=== PATIENT | female | born 1985 | race Caucasian/White ===

== ENCOUNTER 2016-11-13 17:53 | Emergency (ER) | payer OTHER ==
[2016-11-13 18:05] VITALS: BP 150/60; PULSE 84; TEMP 98.4; BMI 24.1
--- NOTE | 2016-11-13 18:06 | PDOC ---
Rapid Medical Evaluation Time Seen by Provider: 11/13/16 18:03 Medical Evaluation: Allergies Allergy/AdvReac Type Severity Reaction Status Date / Time No Known Allergies Allergy Verified 08/16/16 12:38 11/13/16 18:03 This is a 31 yo F presenting to the ER with dental pain She was seen by her Dentist today, told that she needs a root canal or an oral surgeon When the lidocain wore off, her pain was severe Motrin 800mg has not helped No fever On examination Pt crying on examination Left mandibular teeth missing Left upper dental carries Will send to fast track for eval
[2016-11-13] MEDS ORDERED: KETOROLAC TROMETHAMINE 60 MG/2 ML VIAL IM ONE (18:52)
[2016-11-13] MEDS ORDERED: KETOROLAC TROMETHAMINE 60 MG/2 ML VIAL ONE (18:58)
--- NOTE | 2016-11-13 19:05 | PDOC ---
History of Present Illness - General Chief Complaint: Toothache Stated Complaint: TOOTHACHE/INFECTION Time Seen by Provider: 11/13/16 18:03 History Source: Patient Exam Limitations: No Limitations - History of Present Illness Initial Comments: 11/13/16 19:36 Patient is here for complaints of left upper molar toothache. was seen by dentist today who prescribed her amoxicillin and 800 mg of ibuprofen and gave her a dental block this morning. States since wearing off patient has had escalating and exquisite pain to her left upper tooth. Patient has had extensive dental work done for multiple cavities and abscesses and is scheduled for another visit with her dentist on the . Patient denies fever, Occurred: reports: yesterday Pain Location: reports: face Associated Symptoms (Fall): denies symptoms Past History - Travel Traveled outside of the country in the last 30 days: No Close contact w/someone who was outside of country & ill: No - Past Medical History Allergies/Adverse Reactions: Allergies Allergy/AdvReac Type Severity Reaction Status Date / Time No Known Allergies Allergy Verified 11/13/16 18:05 Home Medications: Ambulatory Orders Oxycodone HCl/Acetaminophen [Percocet 5-325 mg Tablet] 1 tab PO Q6H PRN #8 tablet MDD 4 08/16/16 Penicillin V Potassium [Pen Vee K -] 500 mg PO Q6HPO #28 tablet 08/16/16 Kidney Stones: Yes Psychiatric Problems: No (DENIES) - Surgical History Abdominal Surgery: Yes (EXP LAP) Neurologic Surgery: Yes (shaved disk) - Immunization History Immunization Up to Date: Yes - Psycho/Social/Smoking Cessation Hx Anxiety: No Suicidal Ideation: No Smoking Status: Yes Smoking History: Never smoked Have you smoked in the past 12 months: No Number of Cigarettes Smoked Daily: 0 If you are a former smoker, when did you quit?: 1 YR AGO Information on smoking cessation initiated: No Hx Alcohol Use: Yes (SOCAIL) Drug/Substance Use Hx: No Substance Use Type: None Review of Systems - Review of Systems Able to Perform ROS?: Yes Is the patient limited Greenlandic proficient: Yes Constitutional: Yes: Symptoms Reported, See HPI, Fever, Malaise HEENTM: Yes: Symptoms Reported, See HPI, Mouth Pain, Dental Problems (patient was seen by dentist today and was told had a dental abscess/infection, was numbed with a dental block and given amoxicillin. Dental block has worn off , and patient now with agonizing left upper molar pain. Is using ibuprofen prescribed with no relief, and [id number] topical), Mouth Swelling Respiratory: Yes: See HPI. No: Symptoms reported, Cough Neurological: Yes: Symptoms reported, See HPI, Headache, Numbness All Other Systems: Reviewed and Negative *Physical Exam - Vital Signs Last Vital Signs Temp Pulse Resp BP Pulse Ox 98.4 F 84 18 150/60 100 11/13/16 17:57 11/13/16 17:57 11/13/16 17:57 11/13/16 17:57 11/13/16 17:57 - Physical Exam General Appearance: Yes: Nourished, Appropriately Dressed, Apparent Distress, Moderate Distress (writhing in pain) HEENT: positive: EOMI, CRISTIAN, TMs Normal, Other (has mild erythema, swelling, and exquisite tenderness at the upper left third molar, no fluctuance or abscess appreciated. Tooth is intact). negative: Pharyngeal Erythema Neck: positive: Supple. negative: Tender, Lymphadenopathy (R), Lymphadenopathy (L) Respiratory/Chest: positive: Lungs Clear, Normal Breath Sounds Extremity: positive: Normal Capillary Refill, Normal Inspection, Normal Range of Motion Integumentary: positive: Normal Color, Dry, Warm, Pale Neurologic: positive: pediatric speech therapist II-XII NML intact, Fully Oriented, Alert, Normal Mood/ Affect, Normal Response, Motor Strength 5/5 Progress Note - Progress Note Progress Note: Patient medicated with 60 mg of Toradol with significant relief of agonizing pain. Given 2 tablets of Percocet for severe pain relief but encouraged to continue amoxicillin and anti-inflammatories starting tomorrow morning as directed by dentist. And call dentist first thing Wednesday for reevaluation as needed. *DC/Admit/Observation/Transfer Diagnosis at time of Disposition: Pain, dental - Discharge Dispostion Disposition: HOME Condition at time of disposition: Stable Admit: No - Referrals Referrals: Marcus Phipps [Primary Care Provider] - - Patient Instructions Printed Discharge Instructions: DI for Dental Pain Additional Instructions: Rest, drink lots of fluids: Teas, water, soups Saltwater gargles/ keep mouth clean and rinse after each meal May use wet teabag for pain relief to area Avoid hard chewing foods, stick to ice cream, Jell-O, yogurt etc. Tylenol or Motrin for fever and pain Complete all medication as prescribed Seek dental appointment as soon as possible for evaluation of dental injury/pain Take 1 Percocet tablet tonight before bedtime May use other Percocet tablet in 4-6 hours as needed Followup with private physician in one to 2 days as needed Return to emergency department for worsened symptoms, fevers, swelling to face or worsened pain - Post Discharge Activity Work/School Note: Back to Work
[2016-11-13] MEDS ORDERED: OXYCODONE/APAP 5/325MG COMBO TABLET ONE (19:29)
== END 2016-11-13 19:43 | disposition home or self-care (01) ==
LOC: JERFT 17:53
PROC: 3E0233Z Introduction of Anti-inflammatory into Muscle, Percutaneous Approach (ICD-10-PCS; principal; 2016-11-13)
DX: K08.89 Other specified disorders of teeth and supporting structures (principal); Z87.891 Personal history of nicotine dependence
CPT/HCPCS: 96372; 99281-25

== ENCOUNTER → 2017-02-02 | Emergency (ER) | payer OTHER ==
[~2017-02-02] MED LIST: AZITHROMYCIN 1 GM PACKET PO ONE; AZITHROMYCIN 250 MG TABLET (FP) ONE; KETOROLAC TROMETHAMINE 30 MG/1 ML VIAL IVPUSH ONE; KETOROLAC TROMETHAMINE 30 MG/1 ML VIAL ONE; OXYCODONE/APAP 5/325MG COMBO TABLET ONE; OXYCODONE/APAP 5/325MG COMBO TABLET PO ONE; cefTRIAXone SODIUM 1 GM VIAL ONE
[2017-02-02 11:18] VITALS: BMI 24.4
--- NOTE | 2017-02-02 12:28 | PDOC ---
History of Present Illness - General Chief Complaint: Pain Stated Complaint: ABD PAIN Time Seen by Provider: 02/02/17 11:22 History Source: Patient Exam Limitations: No Limitations - History of Present Illness Initial Comments: 02/02/17 12:12 This is a 31 yo F with PMH of lyme disease, R nephrolithiasis and possible diverticulitis 5 yrs ag0, who presents to ED due to pelvic pain x 1w. Pain is located in the suprapubic area and b/l lower quadrants, is sharp and cramping, was intermittent until 24 hr ago, when it became constant. It is nonradiating and is aggravated by lying flat. She had never had this pain before. It started immediately after her LMP was over (LMP 01/28, unusually 4 days late, usual amount). [facility] and treated with topical flagyl cream, which did not help. She never received a call back about culture results. She had associated mild nausea but no vomiting, PO intolerance, f/c, diarrhea, constipation, hematochezia, melena. Last normal BM was yesterday. She denies dysuria, frequency, urgency, flank pain. No PSH abd jonathon. She is sexually active with one person does not use control. PCP Dr Desire Ulloa 02/02/17 12:31 02/02/17 12:49 Past History - Travel Traveled outside of the country in the last 30 days: No Close contact w/someone who was outside of country & ill: No - Past Medical History Allergies/Adverse Reactions: Allergies Allergy/AdvReac Type Severity Reaction Status Date / Time No Known Allergies Allergy Verified 02/02/17 11:18 Home Medications: Ambulatory Orders NK [No Known Home Medication] 02/02/17 Kidney Stones: Yes Psychiatric Problems: No (DENIES) - Surgical History Abdominal Surgery: Yes (EXP LAP) Neurologic Surgery: Yes (shaved disk) - Immunization History Immunization Up to Date: Yes - Psycho/Social/Smoking Cessation Hx Anxiety: No Suicidal Ideation: No Smoking Status: Yes Smoking History: Never smoked Have you smoked in the past 12 months: No Number of Cigarettes Smoked Daily: 0 If you are a former smoker, when did you quit?: 1 YR AGO Information on smoking cessation initiated: No Hx Alcohol Use: Yes (SOCAIL) Drug/Substance Use Hx: No Substance Use Type: None Review of Systems - Review of Systems Able to Perform ROS?: Yes Is the patient limited Kinyarwanda proficient: No Constitutional: No: Chills, Fever, Malaise, Weakness, Unexplained wgt Loss HEENTM: No: Nose Congestion, Throat Pain Respiratory: No: Cough, Shortness of Breath Cardiac (ROS): No: Chest Pain, Edema, Lightheadedness, Palpitations ABD/GI: Yes: Abdominal Distended, Nausea. No: Abd. Pain w/ defecation, Blood Streaked Bowels, Constipated, Diarrhea, Poor Appetite, Poor Fluid Intake, Rectal Bleeding, Vomiting : No: Burning, Dysuria, Frequency, Urgency Musculoskeletal: No: Back Pain Integumentary: No: Flushing, Pruritus, Rash Neurological: No: Headache Psychiatric: No: Anxiety, Depression Endocrine: No: Increased Urine, Unexplained Weight Loss Hematologic/Lymphatic: No: Anemia, Blood Clots, Easy Bleeding, Easy Bruising, Swollen Glands *Physical Exam - Vital Signs Last Vital Signs Temp Pulse Resp BP Pulse Ox 98 F 72 18 138/71 100 02/02/17 11:14 02/02/17 11:14 02/02/17 11:14 02/02/17 11:14 02/02/17 11:14 - Physical Exam Comments: 02/02/17 12:32 GENERAL: NAD HEENT: PERRLA EOMI, no lid lag, no scleral icterus Pulm: CTA b/l CV: RRR, S1 S2 Abd: soft, normal bowel sounds, diffusely tender pelvic region and lower quadrants R>L volunary guarding + rebound, negative murphys, iliopsoas and obturator sign. : no CVA tenderness Skin: no apparent lesions, normal turgor Extremities: no peripheral edema 02/02/17 12:53 ED Treatment Course - LABORATORY CBC & Chemistry Diagram: 02/02/17 12:10 02/02/17 12:10 Medical Decision Making - Medical Decision Making 02/02/17 15:42 cbc w diff, cmp, ua unremarkable. transvaginal US shows 2.5 cm R ovarian cyst with trace pelvic fluid which is not abnormal for young woman. on pelvic exam, patient has copious white milky discharge in vaginal vault, tenderness in vaginal canal, no cervical motion tenderness and pelvic pain. chlamydia GN endocervical swab collected. patient given empiric ceftriaxone IM and azithromycin po. Advised to f/u with OBGYN. *DC/Admit/Observation/Transfer Diagnosis at time of Disposition: Pelvic pain - Discharge Dispostion Disposition: HOME Condition at time of disposition: Good Admit: No - Referrals Referrals: Marcus Phipps [Primary Care Provider] - - Patient Instructions Additional Instructions: your pelvic pain has been investigated. it is not due to urinary infection but could be due to small right ovarian cyst or a pelvic infection. We swabbed you for chlamydia and gonorrhea and will inform you if the culture is positive but please call us by wednesday just in case. We imperially treated you for pelvic infection with antibiotics. Please follow up with your OBGYN within 1 week. Return to the ER if symptoms worsen - Post Discharge Activity Work/School Note: Back to Work
[2017-02-02 12:30] LABS: BASOPHIL 0.7 % (0-2.0); EOSINOPHIL 4.7 % (0-4.5); MCH 29.9 pg (25.7-33.7); MCHC 33.7 g/dl (32.0-36.0); MEAN CELL VOLUME 88.7 fl (80-96); MEAN PLT VOLUME 8.1 fl (7.5-11.1); NEUTROPHILS 62.2 % (42.8-82.8); PLATELET COUNT 274 K/MM3 (134-434); RDW 13.2 % (11.6-15.6)
[2017-02-02 12:54] LABS: ALBUMIN 3.9 g/dl (3.4-5.0); AMYLASE 43 U/L (25-115); ANION GAP 7 (8-16); CO2 30 mmol/L (21-32); CREATININE 0.7 mg/dL (0.55-1.02); GLUCOSE,RANDOM 73 mg/dL (74-106); SGOT/AST 17 U/L (15-37); SGPT/ALT 24 U/L (12-78)
--- NOTE | 2017-02-02 12:55 | PDOC ---
Attending Attestation - Resident Resident Name: YanethMadisynElizabeth - ED Attending Attestation I have performed the following: I have examined & evaluated the patient, The case was reviewed & discussed with the resident, I agree w/resident's findings & plan, Exceptions are as noted - HPI HPI: 02/02/17 12:50 31-year-old female with no significant past medical history other than ovarian cysts in the distant past, question diverticulosis presents with one week of initially intermittent and mild pelvic pain that has now progressed in severity and become more constant, mostly suprapubic and radiating to the left pelvis. The pain is associated with nausea, otherwise no urinary complaints or vaginal discharge or bleeding. LMP was about 10 days ago, started 4 days late but was otherwise normal. No GI complaints other than nausea associated with the pain. When the pain first began, the patient was evaluated at [facility] and was treated empirically with metronidazole gel for presumed BV. She never heard any follow-up about the cultures, so she assumed they were negative. She is sexually active with one partner and does not use condoms. - Physicial Exam PE: 02/02/17 12:52 Her signs normal. Urine pending. Abdomen is soft and nondistended, tender with some guarding in the suprapubic region and left pelvis, no rebound or CVA tenderness - Medical Decision Making 02/02/17 12:53 Patient seen and evaluated with the resident. I agree with the overall evaluation, assessment, and management with the following summary of visit: 31y/o F with 1 week of progressive pelvic pain. ? 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 labs, ua, urine pelvic exam and cultures evus pain control reassess 02/02/17 15:31 labs, wnl, sono with R sided cyst and free pelvic fluid. cervical cx sent, will treat empirically for PID with ceftriaxone im and azithro PO, then d/c with [facility] f/u
[2017-02-02 12:56] LABS: ALK PHOS 48 U/L (45-117); BILIRUBIN,TOTAL 0.4 mg/dL (0.2-1.0); TOT PROT 7.1 g/dl (6.4-8.2)
[2017-02-02 13:07] LABS: URINE APPEARANCE CLEAR; URINE BILIRUBIN NEGATIVE (NEGATIVE); URINE BLOOD NEGATIVE (NEGATIVE); URINE COLOR LTYELLOW; URINE GLUCOSE (UA) NEGATIVE (NEGATIVE); URINE KETONE NEGATIVE (NEGATIVE); URINE LEUK ESTERASE NEGATIVE (NEGATIVE); URINE NITRITE NEGATIVE (NEGATIVE); URINE PROTEIN NEGATIVE (NEGATIVE); URINE UROBILINOGEN NEGATIVE E.U./dl (0.2-1.0)
[2017-02-02 16:20] VITALS: BP 148/68; PULSE 60; TEMP 98.6
== END | disposition home or self-care (01) ==
LOC: JER 11:13
PROC: 3E0333Z Introduction of Anti-inflammatory into Peripheral Vein, Percutaneous Approach (ICD-10-PCS; principal; 2017-02-02)
PROC: 3E02329 Introduction of Other Anti-infective into Muscle, Percutaneous Approach (ICD-10-PCS; 2017-02-02)
DX: R10.2 Pelvic and perineal pain (principal); N83.201 Unspecified ovarian cyst, right side
CPT/HCPCS: 36415; 76830-TC; 80053; 81003; 82150; 83605; 83690; 84703; 85025; 87491; 87591; 96372; 96374; 99282-25

== ENCOUNTER 2017-02-04 17:58 | Emergency (ER) | payer OTHER ==
[2017-02-04 18:01] VITALS: BP 135/73; PULSE 75; TEMP 98; BMI 24.4
[2017-02-04] MEDS ORDERED: KETOROLAC TROMETHAMINE 30 MG/1 ML VIAL IVPUSH ONE (19:35)
--- NOTE | 2017-02-04 19:38 | PDOC ---
History of Present Illness - General Chief Complaint: Pain Stated Complaint: ABDOMINAL PAIN 2ND VISIT Time Seen by Provider: 02/04/17 19:23 History Source: Patient - History of Present Illness Initial Comments: 02/04/17 19:34 31 year old female c/o pelvic pain seen in ED on 02/02/17 noted to have right ovarian cyst. Patient reports that she has been taking Advil and Tylenol at home with no relief in pain. Patient will also have been taking Percocet.. Patient also have followed up at [facility] prior to ER visit on 02/02. Patient denies fever, abdominal pain nausea, vomiting, diarrhea, urinary symptoms. 02/04/17 23:53 Past History - Past Medical History Allergies/Adverse Reactions: Allergies Allergy/AdvReac Type Severity Reaction Status Date / Time No Known Allergies Allergy Verified 02/04/17 18:01 Home Medications: Ambulatory Orders Ibuprofen 600 mg PO QID PRN #14 tablet 02/04/17 Polyethylene Glycol 3350 [Miralax (For Daily Use) -] 17 gm PO DAILY #1 bottle Tramadol HCl 50 mg PO QID PRN #12 tablet MDD 4 02/04/17 Kidney Stones: Yes Psychiatric Problems: No (DENIES) - Surgical History Abdominal Surgery: Yes (EXP LAP) Neurologic Surgery: Yes (shaved disk) - Immunization History Immunization Up to Date: Yes - Psycho/Social/Smoking Cessation Hx Anxiety: No Suicidal Ideation: No Smoking Status: Yes Smoking History: Never smoked Have you smoked in the past 12 months: No Number of Cigarettes Smoked Daily: 0 If you are a former smoker, when did you quit?: 1 YR AGO Information on smoking cessation initiated: No Hx Alcohol Use: No Drug/Substance Use Hx: No Substance Use Type: None *Physical Exam - Vital Signs Last Vital Signs Temp Pulse Resp BP Pulse Ox 98 F 75 18 135/73 100 02/04/17 17:59 02/04/17 17:59 02/04/17 17:59 02/04/17 17:59 02/04/17 17:59 - Physical Exam General Appearance: Yes: Appropriately Dressed Respiratory/Chest: positive: Lungs Clear, Normal Breath Sounds Cardiovascular: positive: Regular Rhythm, Regular Rate Gastrointestinal/Abdominal: positive: Normal Bowel Sounds, Soft, Other (right groin/ pelvic tenderness). negative: Tender Extremity: positive: Normal Capillary Refill, Normal Inspection, Normal Range of Motion Integumentary: positive: Normal Color, Dry, Warm Neurologic: positive: Fully Oriented, Alert, Normal Mood/Affect ED Treatment Course - LABORATORY CBC & Chemistry Diagram: 02/04/17 19:40 02/04/17 19:40 Progress Note - Progress Note Progress Note: A: Constipation; pelvic pain; Plan: CTAP: As discussed Pain control: We'll send home with ibuprofen or Tramadol CBC CMP UA Expressed to patient about close outpatient follow-up. Medical Decision Making - Medical Decision Making 02/04/17 23:54 CT abdomen and pelvis: Previously visualized tiny nonobstructing stone is again faintly visualized there is no evidence of hydroureternephrosis. Findings consistent with constipation with suggestion of diverticulosis coil without evidence of acute diverticulitis. L5-S1 mild central and right paracentral disc bulge with posterior spur formation likely slightly impinges right S1 nerve root. Correlate clinically for further evaluation. CT results reviewed with patient. Patient is to follow-up with the primary care doctor patient has chronic back pain with no numbness or tingling or pain to the lower extremity at this time. *DC/Admit/Observation/Transfer Diagnosis at time of Disposition: Pelvic pain Constipated Qualifiers: Constipation type: unspecified constipation type Qualified Code(s): K59.00 - Constipation, unspecified - Discharge Dispostion Disposition: HOME - Prescriptions Prescriptions: Ibuprofen 600 mg PO QID PRN #14 tablet PRN Reason: Pain Polyethylene Glycol 3350 [Miralax (For Daily Use) -] 17 gm PO DAILY #1 bottle Tramadol HCl 50 mg PO QID PRN #12 tablet MDD 4 PRN Reason: Moderate Pain - Referrals Referrals: Marcus Phipps [Primary Care Provider] - Eze Salinas MD [Staff Physician] - - Patient Instructions Printed Discharge Instructions: DI for Pelvic Pain Additional Instructions: Take ibuprofen every 6 hours for pain level 0-5 as needed. Take tramadol as prescribed every 6 hours for severe pain take miralax as prescribed Follow-up with the director of field coordination/ PMD as soon as possible. Return to the ER if symptoms worsen. - Post Discharge Activity Work/School Note: Back to Work
[2017-02-04 19:54] LABS: BASOPHIL 0.5 % (0-2.0); EOSINOPHIL 5.4 % (0-4.5); MCH 29.1 pg (25.7-33.7); MCHC 32.9 g/dl (32.0-36.0); MEAN CELL VOLUME 88.6 fl (80-96); MEAN PLT VOLUME 8.1 fl (7.5-11.1); PLATELET COUNT 266 K/MM3 (134-434); RDW 13.1 % (11.6-15.6); WHITE BLOOD COUNT 8.7 K/mm3 (4.0-10.0)
[2017-02-04] MEDS ORDERED: KETOROLAC TROMETHAMINE 30 MG/1 ML VIAL ONE (19:54)
--- NOTE | 2017-02-04 19:58 | PDOC ---
*Physical Exam - Vital Signs Last Vital Signs Temp Pulse Resp BP Pulse Ox 98 F 75 18 135/73 100 02/04/17 17:59 02/04/17 17:59 02/04/17 17:59 02/04/17 17:59 02/04/17 17:59 ED Treatment Course - LABORATORY CBC & Chemistry Diagram: 02/04/17 19:40 02/04/17 19:40 Medical Decision Making - Medical Decision Making 02/04/17 19:58 agree with care from DOUGIE Raman *DC/Admit/Observation/Transfer Diagnosis at time of Disposition: Pelvic pain - Referrals Referrals: Marcus Phipps [Primary Care Provider] - - Patient Instructions - Post Discharge Activity
[2017-02-04 20:51] LABS: ALBUMIN 3.8 g/dl (3.4-5.0); ALK PHOS 52 U/L (45-117); ANION GAP 10 (8-16); BILIRUBIN,TOTAL 0.2 mg/dL (0.2-1.0); CALCIUM 8.3 mg/dL (8.5-10.1); CO2 27 mmol/L (21-32); CREATININE 0.7 mg/dL (0.55-1.02); GLUCOSE,RANDOM 76 mg/dL (74-106); SGOT/AST 25 U/L (15-37); SGPT/ALT 27 U/L (12-78); TOT PROT 6.8 g/dl (6.4-8.2)
[2017-02-04] MEDS ORDERED: OXYCODONE/APAP 5/325MG COMBO TABLET PO ONE (21:06)
[2017-02-04] MEDS ORDERED: OXYCODONE/APAP 5/325MG COMBO TABLET ONE (21:15)
[2017-02-04 21:51] LABS: URINE APPEARANCE SLCLOUDY; URINE BILIRUBIN NEGATIVE (NEGATIVE); URINE BLOOD NEGATIVE (NEGATIVE); URINE COLOR LTYELLOW; URINE GLUCOSE (UA) NEGATIVE (NEGATIVE); URINE KETONE NEGATIVE (NEGATIVE); URINE LEUK ESTERASE NEGATIVE (NEGATIVE); URINE NITRITE NEGATIVE (NEGATIVE); URINE PROTEIN NEGATIVE (NEGATIVE); URINE UROBILINOGEN NEGATIVE E.U./dl (0.2-1.0)
[2017-02-04] MEDS ORDERED: traMADol HCL 50 MG TABLET PO ONE (23:51)
[2017-02-05] MEDS ORDERED: traMADol HCL 50 MG TABLET ONE (00:25)
== END 2017-02-05 00:30 | disposition home or self-care (01) ==
LOC: JER 17:58
PROC: 3E0233Z Introduction of Anti-inflammatory into Muscle, Percutaneous Approach (ICD-10-PCS; principal; 2017-02-04)
DX: R10.2 Pelvic and perineal pain (principal); K59.00 Constipation, unspecified; Z87.442 Personal history of urinary calculi; Z87.891 Personal history of nicotine dependence
CPT/HCPCS: 36415; 74177-TC; 80053; 81003; 84703; 85025; 99282-25

== ENCOUNTER 2017-04-24 14:46 | Emergency (ER) | payer OTHER ==
[2017-04-24 14:59] VITALS: BP 153/99; PULSE 80; TEMP 98; BMI 23.7
[2017-04-24] MEDS ORDERED: KETOROLAC TROMETHAMINE 60 MG/2 ML VIAL IM ONE (15:59)
--- NOTE | 2017-04-24 16:12 | PDOC ---
History of Present Illness - General Chief Complaint: Chronic pain Stated Complaint: BACK PAIN Time Seen by Provider: 04/24/17 15:28 - History of Present Illness Initial Comments: 04/24/17 16:08 CHIEF COMPLAINT: back pain HISTORY OF PRESENT ILLNESS: 31 yo F with hx of herniated disc s/p spinal surgery (surgeon Dr. Espinoza Cantrell) presents to ED with lower back pain. Patient reports that she saw her PCP Dr. Phipps yesterday and was told to go to the ER if she was having severe pain in her back. She states that the pain is also in her neck now. She reports that "Dr. Cantrell did tell me back when I got the surgery I might need a trever placed in around 10 years." No recent travel or sick contacts. PAST MEDICAL HISTORY: Denies past medical history FAMILY HISTORY: Denies SOCIAL HISTORY: Denies tobacco, alcohol, illicit drug use. SURGICAL HISTORY: Denies ALLERGIES: No known drug allergies REVIEW OF SYSTEMS General/Constitutional: Denies fever or chills. Denies weakness, weight change. HEENT: Denies change in vision. Denies ear pain or discharge. Denies sore throat. Cardiovascular: Denies chest pain or shortness of breath. Respiratory: Denies cough, wheezing, or hemoptysis. Gastrointestinal: Denies nausea, vomiting, diarrhea or constipation. Denies rectal bleeding. Genitourinary: Denies dysuria, frequency, or change in urination. Musculoskeletal: lower back pain radiating upwards. Denies joint or muscle swelling or pain. Denies neck or back pain. Skin and breasts: Denies rash or easy bruising. Neurologic: Denies headache, vertigo, loss of consciousness, or loss of sensation. PHYSICAL EXAM General Appearance: Well-appearing, appropriately dressed. No apparent distress , no intoxication. HEENT: EOMI, PERRLA, normal ENT inspection, normal voice, TMs normal, pharynx normal. No conjunctival pallor. No photophobia, scleral icterus. Neck: Supple. Trachea midline. No tenderness, rigidity, carotid bruit, stridor , lymphadenopathy, or thyromegaly. Respiratory/Chest: Lungs CTAB. No shortness of breath, chest tenderness, respiratory distress, accessory muscle use. No crackles, rales, rhonchi, stridor , wheezing, dullness Cardiovascular: RRR. S1, S2. No JVD, murmur, bradycardia, tachycardia. Vascular Pulses: Dorsalis-Pedis (R): 2+, Dorsalis-Pedis (L): 2+ Gastrointestinal/Abdominal: Normal bowel sounds. Abdomen soft, non-distended. No tenderness or rebound tenderness. No organomegaly, pulsatile mass, guarding , hernia, hepatomegaly, splenomegaly. Lymphatic: No adenopathy, tenderness. Musculoskeletal/Extremities: Tenderness to mid lower back. Normal inspection. FROM of all extremities, normal capillary refill. Pelvis Stable. No CVA tenderness. No tenderness to extremities, pedal edema, swelling, erythema or deformity. Integumentary: Appropriate color, dry, warm. No cyanosis, erythema, jaundice or rash Neurologic: lean manager II-XII intact. Fully oriented, alert. Appropriate mood/affect. Motor strength 5/5. No appreciable EOM palsy, facial droop or sensory deficit. 04/24/17 16:14 Past History - Past Medical History Allergies/Adverse Reactions: Allergies Allergy/AdvReac Type Severity Reaction Status Date / Time No Known Allergies Allergy Verified 04/24/17 14:53 Home Medications: Ambulatory Orders Cyclobenzaprine HCl 7.5 mg PO HS #7 tablet 04/24/17 Naproxen [Naprosyn -] 250 mg PO BID #14 tablet 04/24/17 Kidney Stones: Yes Psychiatric Problems: No (DENIES) - Surgical History Abdominal Surgery: Yes (EXP LAP) Neurologic Surgery: Yes (SHAVED DISC.) - Immunization History Immunization Up to Date: Yes - Psycho/Social/Smoking Cessation Hx Anxiety: No Suicidal Ideation: No Smoking Status: Yes Smoking History: Never smoked Have you smoked in the past 12 months: No Number of Cigarettes Smoked Daily: 0 If you are a former smoker, when did you quit?: 1 YR AGO Hx Alcohol Use: No Drug/Substance Use Hx: No Substance Use Type: None *Physical Exam - Vital Signs Last Vital Signs Temp Pulse Resp BP Pulse Ox 98 F 80 18 153/99 99 04/24/17 14:53 04/24/17 14:53 04/24/17 14:53 04/24/17 14:53 04/24/17 14:53 *DC/Admit/Observation/Transfer Diagnosis at time of Disposition: Back pain Qualifiers: Back pain location: back pain in other location Chronicity: chronic Qualified Code(s): M54.9 - Dorsalgia, unspecified; G89.29 - Other chronic pain - Discharge Dispostion Disposition: HOME Condition at time of disposition: Stable Admit: No - Prescriptions Prescriptions: Cyclobenzaprine HCl 7.5 mg PO HS #7 tablet Naproxen [Naprosyn -] 250 mg PO BID #14 tablet - Referrals Referrals: Marcus Phipps [Primary Care Provider] - Farhat Caceres MD [Staff Physician] - - Patient Instructions Printed Discharge Instructions: DI for Thoracic Back Pain, DI for Low Back Pain Additional Instructions: Please take medications as prescribed. As discussed, you may want to discuss with Dr. Cantrell regarding recommended neurosurgeons or orthopedic surgeons for further evaluation of your back pain. They can also assist you with getting an MRI. Also as discussed, if you develop any loss of bowel or bladder function, loss of sensation to your legs, or inability to walk, or worsening pain, please return to the ER.
[2017-04-24] MEDS ORDERED: KETOROLAC TROMETHAMINE 60 MG/2 ML VIAL ONE (16:38)
== END 2017-04-24 17:20 | disposition home or self-care (01) ==
LOC: JERFT 14:46 → SUPCPDRO 14:46 → JERFT 17:20
PROC: 3E0233Z Introduction of Anti-inflammatory into Muscle, Percutaneous Approach (ICD-10-PCS; principal; 2017-04-24)
DX: M54.89 Other dorsalgia (principal); G89.29 Other chronic pain
CPT/HCPCS: 84703; 96372; 99281-25

== ENCOUNTER 2018-01-13 09:36 | Emergency (ER) | payer OTHER ==
[2018-01-13 10:01] VITALS: BP 117/78; PULSE 81; TEMP 98.9; BMI 23.3
--- NOTE | 2018-01-13 10:33 | PDOC ---
History of Present Illness - General Chief Complaint: Pain Stated Complaint: ABSCESS Time Seen by Provider: 01/13/18 10:32 History Source: Patient Exam Limitations: No Limitations - History of Present Illness Initial Comments: 01/13/18 11:08 Chief complaint: Possible abscess Patient 32-year-old female with no medical problems who noticed that she had swelling to the right labia yesterday, painful to sit. Patient denies any dysuria, fever or discharge. Patient has one sexual partner, no condom use and no contraceptive use. Last period was about a week ago GENERAL/CONSTITUTIONAL: No fever, weakness. dizziness HEAD, EYES, EARS, NOSE AND THROAT: No change in vision. No ear pain or discharge. No sore throat. CARDIOVASCULAR: No chest pain RESPIRATORY: No shortness of breath or cough GASTROINTESTINAL: No pain, nausea, vomiting, diarrhea or constipation GENITOURINARY: No dysuria, + swelling MUSCULOSKELETAL: No neck or back pain SKIN: No rash NEUROLOGIC: No headache, vertigo, loss of consciousness, or loss of sensation. GENERAL: The patient is awake, alert, and fully oriented, in no acute distress. HEAD: Normal with no signs of trauma. EYES: Pupils equal, round and reactive to light, sclera anicteric, conjunctiva clear. ENT: pharynx: no erythema, no exudate, uvula midline NECK: supple CHEST: clear, nontender, rr ABD: soft, nontender Pelvic: Large amount of white discharge, mild fluid-filled swollen area to upper right labia, no signs of Bartholin's abscess no CMT or adnexal tenderness EXTREMITIES: Normal range of motion, no edema. NEUROLOGICAL: Normal speech, normal gait. SKIN: Warm, Dry Past History - Past Medical History Allergies/Adverse Reactions: Allergies Allergy/AdvReac Type Severity Reaction Status Date / Time No Known Allergies Allergy Verified 01/13/18 09:56 Home Medications: Ambulatory Orders NK [No Known Home Medication] 01/13/18 COPD: No Kidney Stones: Yes Psychiatric Problems: No (DENIES) - Surgical History Abdominal Surgery: Yes (EXP LAP) Neurologic Surgery: Yes (SHAVED DISC.) - Immunization History Immunization Up to Date: Yes - Suicide/Smoking/Psychosocial Hx Smoking Status: Yes Smoking History: Current every day smoker Have you smoked in the past 12 months: Yes Number of Cigarettes Smoked Daily: 10 If you are a former smoker, when did you quit?: 1 YR AGO Information on smoking cessation initiated: Yes 'Breaking Loose' booklet given: 01/13/18 Hx Alcohol Use: Yes (socially) Drug/Substance Use Hx: No Substance Use Type: Marijuana *Physical Exam - Vital Signs Last Vital Signs Temp Pulse Resp BP Pulse Ox 98.9 F 81 18 117/78 98 01/13/18 09:57 01/13/18 09:57 01/13/18 09:57 01/13/18 09:57 01/13/18 09:57 Medical Decision Making - Medical Decision Making 01/13/18 12:45 Discussed issues, findings, results, applicable medications and treatments and follow-up. All these were understood and all questions were answered *DC/Admit/Observation/Transfer Diagnosis at time of Disposition: Labial swelling, Vaginal discharge - Discharge Dispostion Disposition: HOME Condition at time of disposition: Stable Decision to Admit order: No - Referrals Referrals: Marcus Phipps [Primary Care Provider] - - Patient Instructions Printed Discharge Instructions: DI for Vaginal Discharge Additional Instructions: Do sitz baths several times a day Follow-up at [facility] You will be called if any of your tests for STDs comes back positive Practice safe sex, do not have sex until you are reevaluated at [facility] and your situation has improved Turned to the ER if fever or getting sicker - Post Discharge Activity
[2018-01-13 11:25] LABS: HCG,QUALITATIVE URINE NEGATIVE
[2018-01-13 11:34] LABS: URINE APPEARANCE TURBID; URINE BILIRUBIN NEGATIVE (<2.0 mg/dL); URINE COLOR YELLOW; URINE GLUCOSE (UA) NEGATIVE (NEGATIVE); URINE KETONE NEGATIVE (NEGATIVE); URINE LEUK ESTERASE NEGATIVE (NEGATIVE); URINE NITRITE NEGATIVE (NEGATIVE); URINE PROTEIN NEGATIVE (NEGATIVE); URINE UROBILINOGEN NEGATIVE mg/dL (0.2-1.0)
[2018-01-13] MEDS ORDERED: AZITHROMYCIN 250 MG TABLET PO ONE (11:48)
[2018-01-13] MEDS ORDERED: FLUCONAZOLE 50 MG TABLET PO ONE (11:49)
[2018-01-13] MEDS ORDERED: AZITHROMYCIN 250 MG TABLET ONE (12:08)
[2018-01-13] MEDS ORDERED: FLUCONAZOLE 100 MG TABLET (UD) ONE (12:09)
[2018-01-13] MEDS ORDERED: IBUPROFEN 600 MG TABLET (FP) PO ONE ×2 (12:09→12:10)
--- NOTE | 2018-01-14 07:22 | PDOC ---
Patient Follow-up (Call Back) - Post ED Follow - Up Condition at time of discharge: Stable Disposition at time of original discharge: HOME Reason for Call Back: Abnwl. Microbiology (+bacterial vaginosis; left message needs rx for flagyl)
--- NOTE | 2018-01-15 07:33 | PDOC ---
Patient Follow-up (Call Back) - Post ED Follow - Up Condition at time of discharge: Stable Disposition at time of original discharge: HOME Reason for Call Back: Abnwl. Microbiology (Left voicemail for call back.)
--- NOTE | 2018-01-17 07:45 | PDOC ---
Patient Follow-up (Call Back) - Post ED Follow - Up Condition at time of discharge: Stable Disposition at time of original discharge: HOME Reason for Call Back: Abnwl. Microbiology (I have called the patient along with leaving a message for her mother. Since this is a third attempt now to communicate with patient, a certified letter has been sent. Certified number is [id number].) - Disposition Rx Needed: Yes (Spoke to patient and will [facility] prescriptions today and [facility].)
== END 2018-01-13 12:21 | disposition home or self-care (01) ==
LOC: JERFT 09:36
DX: N76.0 Acute vaginitis (principal); B96.89 Other specified bacterial agents as the cause of diseases classified elsewhere
CPT/HCPCS: 36415; 81003; 84703; 87070; 87086; 87186; 87205; 87491; 87591; 99281-25

== ENCOUNTER 2018-06-03 19:22 | Emergency (ER) | payer OTHER ==
[2018-06-03 19:32] VITALS: BP 137/98; PULSE 71; TEMP 98.4; BMI 21.6
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
[2018-06-03] MEDS ORDERED: KETOROLAC TROMETHAMINE 30 MG/1 ML VIAL IM ONE (21:35)
[2018-06-03] MEDS ORDERED: KETOROLAC TROMETHAMINE 30 MG/1 ML VIAL ONE (21:43)
--- NOTE | 2018-06-04 17:00 | EKG ---
Test Reason : Blood Pressure : / mmHG Vent. Rate : 064 BPM Atrial Rate : 064 BPM P-R Int : 142 ms QRS Dur : 082 ms QT Int : 420 ms P-R-T Axes : 055 062 029 degrees QTc Int : 433 ms NORMAL SINUS RHYTHM NORMAL ECG WHEN COMPARED WITH ECG OF 05-JUL-2015 10:25, T WAVE INVERSION NOW EVIDENT IN ANTERIOR LEADS CLINICAL CORRELATION IS RECOMMENDED Confirmed by JEAN MARIE OLIVARES, LAMONT ([id number]) on 06/04/2018 5:00:13 PM Referred By: Confirmed By:LAMONT AJ MD
== END 2018-06-03 22:36 | disposition home or self-care (01) ==
LOC: JERFT 19:22
PROC: 3E0233Z Introduction of Anti-inflammatory into Muscle, Percutaneous Approach (ICD-10-PCS; principal; 2018-06-03)
DX: S29.8XXA Other specified injuries of thorax, initial encounter (principal); M50.20 Other cervical disc displacement, unspecified cervical region; R07.81 Pleurodynia; V49.9XXA Car occupant (driver) (passenger) injured in unspecified traffic accident, initial encounter; W22.10XA Striking against or struck by unspecified automobile airbag, initial encounter; Y92.488 Other paved roadways as the place of occurrence of the external cause; Y93.89 Activity, other specified; Y99.8 Other external cause status
CPT/HCPCS: 70450-TC; 71046-TC-FY; 72125-TC; 84703; 93005; 93010; 99281-25

== ENCOUNTER 2018-06-13 21:43 | Emergency (ER) | payer OTHER ==
[2018-06-13 21:48] VITALS: BP 141/77; PULSE 87; TEMP 98.2; BMI 20.5
[2018-06-13] MEDS ORDERED: ACETAMINOPHEN 500 MG TABLET (FP) PO ONE (22:06)
[2018-06-13] MEDS ORDERED: ACETAMINOPHEN 500 MG TABLET (FP) ONE (22:06)
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
== END 2018-06-13 22:38 | disposition home or self-care (01) ==
LOC: JERFT 21:43
DX: M54.16 Radiculopathy, lumbar region (principal)
CPT/HCPCS: 72100-TC-FY; 99281-25

== ENCOUNTER 2018-09-20 13:46 | Emergency (ER) | payer OTHER ==
[2018-09-20 14:01] VITALS: BP 137/88; PULSE 89; TEMP 99; BMI 18.7
--- NOTE | 2018-09-20 14:02 | PDOC ---
Rapid Medical Evaluation Chief Complaint: Back Pain Time Seen by Provider: 09/20/18 13:59 Medical Evaluation: Allergies Allergy/AdvReac Type Severity Reaction Status Date / Time No Known Allergies Allergy Verified 06/13/18 21:49 09/20/18 13:59 I have performed a brief in person evaluation of this patient. The patient's CC: back pain HPI: Pt has a hx of back surgery and complains of back pain x 1 day. Denies urinary symptoms, denies hx of kidney stones, denies injury of trauma, denies hx of IV drug use or fever. PE: Skin: Clear Heart: RRR Lungs: Clear MS. pain upon palpation to the lumbar spine Neuro: Alert and oriented Psch: appropriate affect The patient will proceed to [facility] for further evaluation. Discharge Disposition - Diagnosis Back pain Qualifiers: Back pain location: low back pain Chronicity: acute Back pain laterality: unspecified Sciatica presence: with sciatica Sciatica laterality: sciatica laterality unspecified Qualified Code(s): M54.40 - Lumbago with sciatica, unspecified side - Referrals - Patient Instructions - Post Discharge Activity
--- NOTE | 2018-09-20 14:24 | PDOC ---
History of Present Illness - General Chief Complaint: Back Pain Stated Complaint: lower back pain Time Seen by Provider: 09/20/18 13:59 History Source: Patient Exam Limitations: No Limitations - History of Present Illness Initial Comments: 09/20/18 15:24 Patient comes in tearful with exquisite low back pain that started this morning. Is progressively worsen. Patient has a long history of lumbar spine radiculopathy and back pain. Had a discectomy approximately 2 years ago with a sciatic nerve injury approximate 7 years ago. Denies any recent trauma or changes in activity or exercise. 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 Denies fever, any recent URI coughing or any GI complaints. States has used all of the medication she generally uses when she has a flare including cyclobenzaprine, ibuprofen, steroids, with no resolved. Occurred: reports: last week Severity: reports: mild, moderate Pain Location: reports: back Method of Injury: Yes: unknown Loss of Consciousness: no loss of consciousness Associated Symptoms (Fall): denies symptoms, muscle spasms Past History - Travel Traveled outside of the country in the last 30 days: No Close contact w/someone who was outside of country & ill: No - Past Medical History Allergies/Adverse Reactions: Allergies Allergy/AdvReac Type Severity Reaction Status Date / Time No Known Allergies Allergy Verified 09/20/18 13:59 Home Medications: Ambulatory Orders Escitalopram Oxalate [Lexapro -] 10 mg PO DAILY 06/03/18 Quetiapine Fumarate [Seroquel -] 50 mg PO BID 06/03/18 Cyclobenzaprine HCl [Flexeril 10 mg] 10 mg PO HS PRN #10 tablet 06/13/18 Methylprednisolone [Medrol Dose Brad] 4 mg PO ASDIR #21 tablet 06/13/18 Nitrofurantoin Macrocrystal [Macrodantin -] 100 mg PO BID #14 capsule 09/20/18 predniSONE [Deltasone -] 20 mg PO BID #8 tablet 09/20/18 Asthma: Yes COPD: No CHF: No Kidney Stones: Yes Psychiatric Problems: Yes (ANXIETY) - Surgical History Abdominal Surgery: Yes (EXP LAP) Neurologic Surgery: Yes (SHAVED DISC.) - Immunization History Immunization Up to Date: Yes - Suicide/Smoking/Psychosocial Hx Smoking Status: Yes Smoking History: Never smoked Have you smoked in the past 12 months: Yes Number of Cigarettes Smoked Daily: 10 If you are a former smoker, when did you quit?: 1 YR AGO 'Breaking Loose' booklet given: 01/13/18 Hx Alcohol Use: Yes (socially) Drug/Substance Use Hx: No Substance Use Type: Marijuana Review of Systems - Review of Systems Able to Perform ROS?: Yes Is the patient limited Monegasque proficient: Yes Constitutional: Yes: Symptoms Reported, See HPI, Loss of Appetite, Malaise. No : Fever HEENTM: Yes: See HPI. No: Symptoms Reported Respiratory: Yes: See HPI. No: Symptoms reported Musculoskeletal: Yes: Symptoms Reported, See HPI, Back Pain, Muscle Pain, Muscle Weakness Neurological: Yes: Symptoms reported, See HPI, Numbness (BILateral feet) All Other Systems: Reviewed and Negative *Physical Exam - Vital Signs Last Vital Signs Temp Pulse Resp BP Pulse Ox 99 F 89 18 137/88 09/20/18 13:59 09/20/18 13:59 09/20/18 13:59 09/20/18 13:59 - Physical Exam General Appearance: Yes: Nourished, Appropriately Dressed, Apparent Distress HEENT: positive: CRISTIAN, Normal ENT Inspection, TMs Normal, Pharynx Normal Neck: positive: Supple. negative: Lymphadenopathy (R), Lymphadenopathy (L) Respiratory/Chest: positive: Lungs Clear Musculoskeletal: positive: Decreased Range of Motion, Muscle Spasm (tight tense musculature of paravertebral spinous muscles of lumbar area. Worse on the right than the left. Has no crepitus or step-offs but has some slight swelling to S1 L5 L4 area.). negative: Normal Inspection, Vertebral Tenderness Extremity: positive: Normal Capillary Refill, Normal Inspection. 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 Given 2 Percocet tablets for severe pain tonight, encouraged to continue cyclobenzaprine use, given IM dose of Toradol 60 mg and will continue steroid short course of [address] wilson's office and able to obtain an appointment tomorrow afternoon at 1 PM. Patient will follow up with Dr. wilson for any further treatment and studies. *DC/Admit/Observation/Transfer Diagnosis at time of Disposition: Lumbar radiculopathy Back pain Qualifiers: Back pain location: low back pain Chronicity: acute Back pain laterality: unspecified Sciatica presence: with sciatica Sciatica laterality: sciatica laterality unspecified Qualified Code(s): M54.40 - Lumbago with sciatica, unspecified side UTI (urinary tract infection) Qualifiers: Urinary tract infection type: acute cystitis Hematuria presence: without hematuria Qualified Code(s): N30.00 - Acute cystitis without hematuria - Discharge Dispostion Disposition: HOME Condition at time of disposition: Stable Decision to Admit order: No - Prescriptions Prescriptions: Nitrofurantoin Macrocrystal [Macrodantin -] 100 mg PO BID #14 capsule predniSONE [Deltasone -] 20 mg PO BID #8 tablet - Referrals Referrals: Marcus Phipps [Primary Care Provider] - - Patient Instructions Printed Discharge Instructions: DI for Low Back Pain, DI for Urinary Tract Infection (UTI) Additional Instructions: Rest, no heavy lifting or exercise until pain is resolved Hot soaks to neck and low back as often as possible/hot showers or Jacuzzis No massage or therapy until spasm is gone Continue Naprosyn 500 mg tablet, 1 tablet every 8 hours for the next 3 days then as needed for pain and swelling Prednisone 40mg daily for next 5days Cyclobenzaprine 1-10mg every 8 hours as needed for spasm If not significant improvement within 24 hours with medication and rest regime, followup with private physician for change in medications and /or therapy. APPOINTMNENT WITH DR WILSON TOMORROW AT [facility] Rest, drink lots of fluids: Teas, water, soups Avoid contact with others until fevers and symptoms resolved Lots of handwashing and good hygiene Continue [id number] medications for symptomatic relief Tylenol or Motrin for fever and pain Continue all of antibiotics until completed Followup with private physician in one week for repeat urinalysis/reevaluation Return to emergency department for worsened symptoms, fevers, dehydration - Post Discharge Activity Forms/Work/School Notes: Back to Work
[2018-09-20] MEDS ORDERED: KETOROLAC TROMETHAMINE 60 MG/2 ML VIAL IM ONE (14:39)
[2018-09-20] MEDS ORDERED: predniSONE 20 MG TABLET (UD) PO ONE (14:57)
[2018-09-20 15:08] LABS: URINE APPEARANCE CLOUDY; URINE BILIRUBIN NEGATIVE (<2.0 mg/dL); URINE GLUCOSE (UA) NEGATIVE (NEGATIVE); URINE KETONE NEGATIVE (NEGATIVE); URINE LEUK ESTERASE 1+ (NEGATIVE); URINE NITRITE POSITIVE (NEGATIVE); URINE PROTEIN 1+ (NEGATIVE); URINE UROBILINOGEN NEGATIVE mg/dL (0.2-1.0)
[2018-09-20] MEDS ORDERED: predniSONE 20 MG TABLET (UD) ONE (15:08)
[2018-09-20] MEDS ORDERED: KETOROLAC TROMETHAMINE 60 MG/2 ML VIAL ONE (15:09)
[2018-09-20 15:11] LABS: URINE COLOR YELLOW
[2018-09-20 15:14] LABS: HCG,QUALITATIVE URINE Negative
[2018-09-20 15:17] LABS: EPI CELLS RARE /HPF (FEW); URINE BACTERIA FEW /hpf (NONE SEEN); URINE MUCUS MANY; YEAST RARE
[2018-09-20] MEDS ORDERED: NITROFURANTOIN MACROCRYSTAL 50 MG CAPSULE (FP) ONE ×2 (15:20→15:21)
[2018-09-20] MEDS ORDERED: NITROFURANTOIN MACROCRYSTAL 50 MG CAPSULE (FP) PO SCH (15:30)
== END 2018-09-20 15:40 | disposition home or self-care (01) ==
LOC: JERFT 13:46
PROC: 3E0233Z Introduction of Anti-inflammatory into Muscle, Percutaneous Approach (ICD-10-PCS; principal; 2018-09-20)
DX: N30.00 Acute cystitis without hematuria (principal); M54.16 Radiculopathy, lumbar region; M54.40 Lumbago with sciatica, unspecified side
CPT/HCPCS: 81003; 81015; 84703; 96372; 99281-25

== ENCOUNTER 2019-11-09 15:17 | Emergency (ER) | payer OTHER ==
[2019-11-09] MEDS ORDERED: SODIUM CHLORIDE 1,000 ML IV STA (15:25)
[2019-11-09] MEDS ORDERED: ONDANSETRON 4 MG/2 ML VIAL IVPUSH ONE (15:25)
--- NOTE | 2019-11-09 15:27 | PDOC ---
Rapid Medical Evaluation Chief Complaint: Nausea/Vomiting Time Seen by Provider: 11/09/19 15:22 Medical Evaluation: Allergies Allergy/AdvReac Type Severity Reaction Status Date / Time No Known Allergies Allergy Verified 11/09/19 15:25 11/09/19 15:25 Pt c/o: LOW BACK PAIN, PELVIC PAIN, N/V, dysuria Pt on brief exam: tachy, nervous Pt ordered for: labs, urine, ivf, zofran P to proceed to the Ed Discharge Disposition - Diagnosis Abdominal pain - Referrals - Patient Instructions - Post Discharge Activity
[2019-11-09 15:38] VITALS: BMI 22.1
[2019-11-09 15:47] LABS: BASO % 0.6 % (0-2.0); EOS % 6.2 % (0-4.5); HEMATOCRIT 40.8 % (32.4-45.2); HEMOGLOBIN 13.6 GM/dL (10.7-15.3); LYMPH % 23.9 % (8-40); MCH 30.2 pg (25.7-33.7); MCHC 33.4 g/dl (32.0-36.0); MEAN CELL VOLUME 90.4 fl (80-96); MEAN PLT VOLUME 8.2 fl (7.5-11.1); MONO % 5.9 % (3.8-10.2); NEUT % 63.4 % (42.8-82.8); PLATELET COUNT 335 K/MM3 (134-434); RBC 4.51 M/mm3 (3.60-5.2); RDW 13.3 % (11.6-15.6); WHITE BLOOD COUNT 11.3 K/mm3 (4.0-10.0)
[2019-11-09 15:52] LABS: HCG,QUALITATIVE URINE Negative
[2019-11-09] MEDS ORDERED: ONDANSETRON 4 MG/2 ML VIAL ONE (16:15)
[2019-11-09 16:34] LABS: EPI CELLS >36 /HPF (0-5/HPF); HYALINE CASTS 3 /lpf (0-8); URINE APPEARANCE CLEAR; URINE BACTERIA ABOVE LINEARITY /hpf (NEGATIVE); URINE BILIRUBIN NEGATIVE (NEGATIVE); URINE COLOR YELLOW; URINE GLUCOSE (UA) NEGATIVE (NEGATIVE); URINE KETONE 2+ (NEGATIVE); URINE LEUK ESTERASE TRACE (NEGATIVE); URINE NITRITE POSITIVE (NEGATIVE); URINE PROTEIN NEGATIVE (NEGATIVE); URINE RBC 7 /hpf (0-4); URINE UROBILINOGEN 0.2 mg/dL (0.2-1.0); URINE WBC 89 /hpf (0-5)
[2019-11-09 16:39] LABS: ALBUMIN 4.5 g/dl (3.4-5.0); BILIRUBIN,TOTAL 0.4 mg/dL (0.2-1); BLOOD UREA NITROGEN 16.6 mg/dL (7-18); CALCIUM 9.2 mg/dL (8.5-10.1); CREATININE 0.8 mg/dL (0.55-1.3); MAGNESIUM 2.7 mg/dL (1.8-2.4); POTASSIUM 4.4 mmol/L (3.5-5.1); TOT PROT 8.3 g/dl (6.4-8.2)
--- NOTE | 2019-11-09 17:55 | PDOC ---
History of Present Illness - General Chief Complaint: Nausea/Vomiting Stated Complaint: FLU SYS Time Seen by Provider: 11/09/19 15:22 Past History - Past Medical History Allergies/Adverse Reactions: Allergies Allergy/AdvReac Type Severity Reaction Status Date / Time No Known Allergies Allergy Verified 11/09/19 15:25 Home Medications: Ambulatory Orders Cephalexin Monohydrate [Keflex -] 500 mg PO BID #28 capsule 11/09/19 Ondansetron [Zofran Odt -] 4 mg SL TID #10 od.tablet 11/09/19 Asthma: Yes COPD: No CHF: No Kidney Stones: Yes Psychiatric Problems: Yes (ANXIETY) - Surgical History Abdominal Surgery: Yes (EXP LAP) Neurologic Surgery: Yes (SHAVED DISC.) - Immunization History Immunization Up to Date: Yes - Psycho Social/Smoking Cessation Hx Smoking Status: Yes Smoking History: Unknown if ever smoked Have you smoked in the past 12 months: Yes Number of Cigarettes Smoked Daily: 10 If you are a former smoker, when did you quit?: 1 YR AGO 'Breaking Loose' booklet given: 01/13/18 Hx Alcohol Use: Yes (socially) Drug/Substance Use Hx: Yes Substance Use Type: Marijuana *Physical Exam - Vital Signs Last Vital Signs Temp Pulse Resp BP Pulse Ox 98.5 F 106 H 20 128/93 99 11/09/19 15:25 11/09/19 15:25 11/09/19 15:25 11/09/19 15:25 11/09/19 15:25 ED Treatment Course - LABORATORY CBC & Chemistry Diagram: 11/09/19 15:36 11/09/19 15:36 - ADDITIONAL ORDERS Additional order review: Laboratory Results 11/09/19 11/09/19 15:36 15:36 Sodium 138 Potassium 4.4 Chloride 103 Carbon Dioxide 27 Anion Gap 9 BUN 16.6 Creatinine 0.8 Est GFR (CKD-EPI)AfAm 110.70 Est GFR (CKD-EPI)NonAf 95.52 Random Glucose 93 Calcium 9.2 Magnesium 2.7 H Total Bilirubin 0.4 AST 13 L ALT 27 Alkaline Phosphatase 67 Total Protein 8.3 H Albumin 4.5 Lipase 79 Urine Color Yellow Urine Appearance Clear Urine pH 8.0 D Ur Specific [place] 1.018 Urine Protein Negative Urine Glucose (UA) Negative Urine Ketones 2+ H Urine Blood Negative Urine Nitrite Positive H Urine Bilirubin Negative Urine Urobilinogen 0.2 Ur Leukocyte Esterase Trace Urine WBC (Auto) 89 Urine RBC (Auto) 7 Urine Casts (Auto) 3 U Epithel Cells (Auto) >36 Urine Bacteria (Auto) Above linearity Urine HCG, Qual Negative 11/09/19 15:36 RBC 4.51 MCV 90.4 MCHC 33.4 RDW 13.3 MPV 8.2 Neutrophils % 63.4 Lymphocytes % 23.9 Monocytes % 5.9 Eosinophils % 6.2 H Basophils % 0.6 - Medications Given in the ED: ED Medications Discontinued Medications Generic Name Dose Route Start Last Admin Trade Name Ajayq PRN Reason Stop Dose Admin Sodium Chloride 1,000 mls @ 1,000 mls/hr 11/09/19 15:25 11/09/19 16:20 Normal Saline - IV 11/09/19 16:24 1,000 mls/hr ASDIR STA Administration Ondansetron HCl 4 mg 11/09/19 15:25 11/09/19 16:25 Zofran Injection IVPUSH 11/09/19 15:26 4 mg ONCE ONE Administration Discharge - Discharge Information Clinical Impression/Diagnosis: UTI (urinary tract infection) Qualifiers: Urinary tract infection type: acute cystitis Hematuria presence: without hematuria Qualified Code(s): N30.00 - Acute cystitis without hematuria Condition: Stable Disposition: HOME - Admission No - Additional Discharge Information Prescriptions: Cephalexin Monohydrate [Keflex -] 500 mg PO BID #28 capsule Ondansetron [Zofran Odt -] 4 mg SL TID #10 od.tablet - Follow up/Referral Referrals: Marcus Phipps [Primary Care Provider] - - Patient Discharge Instructions Patient Printed Discharge Instructions: DI for Urinary Tract Infection (UTI) Additional Instructions: You have a urinary tract infection. This caused by bacteria. Please drink plenty of fluids. Take your antibiotics as prescribed. Finish the entire dose even if you feel better. May take the Zofran every 8 hours as needed for nausea or vomiting. You may take Tylenol or Motrin as needed for pain Please follow up with your primary care doctor this week. Return to the emergency department if you have fevers, chills, nausea, vomiting, back pain, abdominal pain or have any changes in your symptoms. - Post Discharge Activity Work/Back to School Note: Back to Work
[2019-11-09] MEDS ORDERED: METOCLOPRAMIDE HCL INJECTION 10 MG/2 ML VIAL IVPB ONE (18:39)
[2019-11-09] MEDS ORDERED: CEFTRIAXONE 1,000 MG in DEXTROSE 5%-WATER - 50 ML IVPB ONE (18:40)
[2019-11-09] MEDS ORDERED: CEFTRIAXONE 1 GM/50 ML BAG ONE (19:47)
[2019-11-09] MEDS ORDERED: METOCLOPRAMIDE HCL INJECTION 10 MG/2 ML VIAL ONE ×2 (19:47→20:01)
[2019-11-09 21:42] VITALS: BP 105/63; PULSE 74; TEMP 97.9
== END 2019-11-09 21:30 | disposition home or self-care (01) ==
LOC: JER 15:17
PROC: 3E0337Z Introduction of Electrolytic and Water Balance Substance into Peripheral Vein, Percutaneous Approach (ICD-10-PCS; principal; 2019-11-09)
PROC: 3E03329 Introduction of Other Anti-infective into Peripheral Vein, Percutaneous Approach (ICD-10-PCS; 2019-11-09)
PROC: 3E033GC Introduction of Other Therapeutic Substance into Peripheral Vein, Percutaneous Approach (ICD-10-PCS; 2019-11-09)
PROC: 3E033GC Introduction of Other Therapeutic Substance into Peripheral Vein, Percutaneous Approach (ICD-10-PCS; 2019-11-09)
PROC: 3E033GC Introduction of Other Therapeutic Substance into Peripheral Vein, Percutaneous Approach (ICD-10-PCS; 2019-11-09)
DX: N30.00 Acute cystitis without hematuria (principal)
CPT/HCPCS: 36415; 80053; 81003; 83690; 83735; 84703; 85025; 87086; 87186; 87491; 87591; 99284-25; J7030

== ENCOUNTER 2020-03-01 21:45 | Emergency (ER) | payer OTHER ==
[2020-03-01 21:51] VITALS: BP 154/101; PULSE 59; TEMP 98.9; BMI 20.9
[2020-03-01] MEDS ORDERED: LIDOCAINE HCL 1%, 10 MG/ML (20ML VIAL) ONE (22:09)
--- NOTE | 2020-03-01 22:14 | PDOC ---
Attending Attestation - Resident Resident Name: Stew Adrian - ED Attending Attestation I have performed the following: I have examined & evaluated the patient, The case was reviewed & discussed with the resident, I agree w/resident's findings & plan - HPI HPI: 03/01/20 22:20 Pt was washing a glass and her hand went thru the base, which shattered and the glass was around her wrst, having cut her ulnar aspect of her hand. - Physicial Exam PE: 03/01/20 22:38 Pt has a normal exam Right dominant hand ulnar aspect at the level of the 5th mid metacarpal., pt has a laceration FROM of the fingers sensation and motor intact Hemodynamically intact Pt has no FB sensation in the hand - Medical Decision Making 03/01/20 22:40 Pt has no glass on XRay of the hand. 03/01/20 22:42 We will suture her hand and cover her with keflex prophylaxis 03/01/20 23:46 Pt sutured by resident. Pt tolerated procefure well. Prophylactic abx and she received a TDAP; good for 10 years Follow with PMD or ourselved for suture removal in 7-10 days Discharge - Discharge Information Problems reviewed: Yes Clinical Impression/Diagnosis: Laceration Condition: Stable Disposition: HOME - Additional Discharge Information Prescriptions: Cephalexin [Keflex] 500 mg PO DAILY 7 Days #7 capsule - Follow up/Referral Referrals: Joel Cleary MD [Staff Physician] - - Patient Discharge Instructions Patient Printed Discharge Instructions: DI for Laceration Repair, DI for Suture Removal Additional Instructions: Please see your Primary Doctor within the next 48 hours. Have your Sutures removed in 6 days. Take the antibiotics as prescribed to you. Return to the ER for new or concerning symptoms including but not limited to: fevers, drainage, redness, swelling. If you have restricted range of motion in the hand or concerns, please call the orthopedic doctor referred to you. Thank you - Post Discharge Activity
[2020-03-01] MEDS ORDERED: CEPHALEXIN MONOHYDRATE 500 MG CAPSULE (UD) PO ONE (22:42)
[2020-03-01] MEDS ORDERED: CEPHALEXIN MONOHYDRATE 500 MG CAPSULE (UD) ONE (23:08)
[2020-03-01] MEDS ORDERED: DIPHTH,PERTUSS(ACELL),TET 0.5 ML DISP.SYRIN IM ONE ×2 (23:12→23:13)
--- NOTE | 2020-03-01 23:19 | PDOC ---
History of Present Illness - General Chief Complaint: Injury Stated Complaint: R HAND INJURY Time Seen by Provider: 03/01/20 21:59 History Source: Patient Exam Limitations: No Limitations - History of Present Illness Initial Comments: 03/01/20 23:28 34 yo female presents to the ED from home after washing dishes with laceration to R hand and glass cup is stuck around her forearm. Pt states she accidentally broke her glass cup while washing dishes, the cup is not able to move past the wrist and has a laceration to the medial knuckle. Bleeding controlled with gauze. Denies changes in sensation, strength or ROM of the right hand/fingers. Last tetanus unknown. 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 Past History - Medical History Allergies/Adverse Reactions: Allergies Allergy/AdvReac Type Severity Reaction Status Date / Time No Known Allergies Allergy Verified 03/01/20 21:51 Home Medications: Ambulatory Orders Cephalexin Monohydrate [Keflex -] 500 mg PO BID #28 capsule 11/09/19 Ondansetron [Zofran Odt -] 4 mg SL TID #10 od.tablet 11/09/19 Cephalexin [Keflex] 500 mg PO DAILY 7 Days #7 capsule 03/01/20 Asthma: Yes COPD: No CHF: No Kidney Stones: Yes Psychiatric Problems: Yes (ANXIETY) - Surgical History Abdominal Surgery: Yes (EXP LAP) Neurologic Surgery: Yes (SHAVED DISC.) - Immunization History Immunization Up to Date: Yes - Psycho-Social/Smoking History Smoking Status: Yes Smoking History: Current every day smoker Have you smoked in the past 12 months: Yes Number of Cigarettes Smoked Daily: 10 If you are a former smoker, when did you quit?: 1 YR AGO Information on smoking cessation initiated: No 'Breaking Loose' booklet given: 01/13/18 - Substance Abuse Hx (Audit-C & DAST Scrn) How often the patient has a drink containing alcohol: Monthly or less Score: In Men: 4 or > Positive; In Women: 3 or > Positive: 1 Screen Result (Pos requires Nsg. Audit-10AR): Negative Review of Systems - Review of Systems Constitutional: Yes: Symptoms Reported HEENTM: Yes: Symptoms Reported Respiratory: Yes: Symptoms reported Cardiac (ROS): Yes: Symptoms Reported ABD/GI: Yes: Symptoms Reported : Yes: Symptoms Reported Musculoskeletal: Yes: Symptoms Reported Integumentary: Yes: Symptoms Reported Neurological: Yes: Symptoms reported *Physical Exam - Vital Signs Last Vital Signs Temp Pulse Resp BP Pulse Ox 98.9 F 59 L 18 154/101 H 99 03/01/20 21:48 03/01/20 21:48 03/01/20 21:48 03/01/20 21:48 03/01/20 21:48 - Physical Exam General Appearance: Yes: Nourished, Appropriately Dressed, Apparent Distress HEENT: positive: EOMI Neck: positive: Supple. negative: Carotid bruit Respiratory/Chest: positive: Lungs Clear, Normal Breath Sounds, Respiratory Distress Cardiovascular: positive: Regular Rhythm, Regular Rate, S1, S2. negative: Edema, JVD, Murmur Vascular Pulses: Dorsalis-Pedis (R): 4+, Doralis-Pedis (L): 4+ Comments:: 03/01/20 23:31 radial and ulnar pulses equal Gastrointestinal/Abdominal: positive: Flat, Soft Extremity: positive: Normal Capillary Refill, Normal Range of Motion, Other (laceration to hypothenar eminence, ROM normal, strength/sensation eual, no snuff box tenderness) Integumentary: positive: Normal Color, Dry, Warm Neurologic: positive: Fully Oriented, Alert, Normal Mood/Affect Procedures - Laceration/Wound Repair Right Anterior Medial Hand Wound Length: to 2.5 cm Wound Explored: clean, no foreign body present Wound's Depth, Shape: superficial, flap Irrigated w/ Saline: Yes Betadine Prep: Yes Anesthesia: 1% Lidocaine Amount of Anesthetic (ccs): 3 Wound Debrided: minimal Wound Repaired With: Sutures Suture Size/Type: 4:0 Number of Sutures: 7 ED Treatment Course - RADIOLOGY Radiology Studies Ordered: Category Date Time Status HAND- RIGHT [RAD] Stat Radiology 03/01/20 22:22 Taken - Medications Given in the ED: ED Medications Discontinued Medications Generic Name Dose Route Start Last Admin Trade Name oYu PRN Reason Stop Dose Admin Cephalexin HCl 500 mg 03/01/20 22:42 03/01/20 23:13 Keflex - PO 03/01/20 22:43 500 mg ONCE ONE Administration Medical Decision Making - Medical Decision Making 03/01/20 23:39 34 yo female presents to the ED from home after washing dishes with laceration to R hand and glass cup is stuck around her forearm. Pt states she accidentally broke her glass cup while washing dishes, the cup is not able to move past the wrist and has a laceration to the medial knuckle. Bleeding controlled with gauze. Denies changes in sensation, strength or ROM of the right hand/fingers. Last tetanus unknown. 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 see procedure note Pt tolerated sutures well, normal ROM, sensation and strength equal bilaterally after sutures, pulses equal and intact Given TDAP and Keflex, will send keflex to pharmacy Pt safe for DC, given Ortho Hand incase pt has further concerns with ROM at later date Strict return precautions given Discharge - Discharge Information Problems reviewed: Yes Clinical Impression/Diagnosis: Laceration Condition: Stable Disposition: HOME - Admission No - Additional Discharge Information Prescriptions: Cephalexin [Keflex] 500 mg PO DAILY 7 Days #7 capsule - Follow up/Referral Referrals: Joel Cleary MD [Staff Physician] - - Patient Discharge Instructions Patient Printed Discharge Instructions: DI for Laceration Repair, DI for Suture Removal Additional Instructions: Please see your Primary Doctor within the next 48 hours. Have your Sutures removed in 6 days. Take the antibiotics as prescribed to you. Return to the ER for new or concerning symptoms including but not limited to: fevers, drainage, redness, swelling. If you have restricted range of motion in the hand or concerns, please call the orthopedic doctor referred to you. Thank you - Post Discharge Activity
== END 2020-03-01 23:50 | disposition home or self-care (01) ==
LOC: JER 21:45
PROC: 0HQFXZZ Repair Right Hand Skin, External Approach (ICD-10-PCS; principal; 2020-03-01)
PROC: 3E0234Z Introduction of Serum, Toxoid and Vaccine into Muscle, Percutaneous Approach (ICD-10-PCS; principal; 2020-03-01)
DX: S61.411A Laceration without foreign body of right hand, initial encounter (principal); W25.XXXA Contact with sharp glass, initial encounter
CPT/HCPCS: 73130-TC-RT-FY; 90715; 99283-25

== ENCOUNTER 2020-03-10 17:51 | Emergency (ER) | payer OTHER ==
[2020-03-10 18:11] VITALS: TEMP 97.8; BMI 20.9
--- NOTE | 2020-03-10 18:11 | PDOC ---
Rapid Medical Evaluation Time Seen by Provider: 03/10/20 18:08 Medical Evaluation: Allergies Allergy/AdvReac Type Severity Reaction Status Date / Time No Known Allergies Allergy Verified 03/01/20 21:51 03/10/20 18:08 I performed a brief in-person evaluation of this patient. Pt is a 34 y/o female with a wound to her right medial hand and believes she messed up the sutures. Pt also admits to L ankle pain during a trip and fall. Injury on 03/01/20. Pertinent physical exam findings: walking with a limp, R hand wound appears to be healing well. No drainage, sutures in place. I have ordered the following: L ankle xr Patient to proceed to ED for further evaluation. Discharge Disposition - Diagnosis Visit for suture removal, Left ankle pain - Referrals - Patient Instructions - Post Discharge Activity
--- NOTE | 2020-03-10 18:18 | PDOC ---
Suture Removal/Wound Check HPI - History of Present Illness Chief Complaint: Suture/Staple Removal(Here) Stated Complaint: STICHES REMOVAL Time Seen by Provider: 03/10/20 18:08 History Source: Yes: Patient Treated at: [facility] Date of Last ED visit: 03/01/20 - Previous ED Treatment Type of procedure performed on last visit: Yes: Laceration Repair Tetanus Immunization: Yes: Up to Date Past History - Medical History Allergies/Adverse Reactions: Allergies Allergy/AdvReac Type Severity Reaction Status Date / Time No Known Allergies Allergy Verified 03/10/20 18:11 Home Medications: Ambulatory Orders NK [No Known Home Medication] 03/10/20 Asthma: Yes COPD: No CHF: No Kidney Stones: Yes Psychiatric Problems: Yes (ANXIETY) - Surgical History Abdominal Surgery: Yes (EXP LAP) Neurologic Surgery: Yes (SHAVED DISC.) - Immunization History Immunization Up to Date: Yes - Psycho-Social/Smoking History Smoking Status: Yes Smoking History: Never smoked Have you smoked in the past 12 months: Yes Number of Cigarettes Smoked Daily: 10 If you are a former smoker, when did you quit?: 1 YR AGO 'Breaking Loose' booklet given: 01/13/18 - Substance Abuse Hx (Audit-C & DAST Scrn) How often the patient has a drink containing alcohol: Never Score: In Men: 4 or > Positive; In Women: 3 or > Positive: 0 Screen Result (Pos requires Nsg. Audit-10AR): Negative *Review of Systems - Review of Systems Constitutional: No: Chills, Fever Musculoskeletal: Yes: Joint Pain. No: Joint Swelling *Physical Exam - Vital Signs Last Vital Signs Temp Pulse Resp BP Pulse Ox 97.8 F 92 H 18 131/102 H 98 03/10/20 18:08 03/10/20 18:08 03/10/20 18:08 03/10/20 18:08 03/10/20 18:08 - Physical Exam General Appearance: Yes: Appropriately Dressed. No: Apparent Distress HEENT: positive: Normal Voice Neck: positive: Supple Respiratory/Chest: negative: Respiratory Distress Extremity: positive: Other (well healing lac to medial R hand w/ sutures intact, L ankle without swelling, +minimal ttp to anterior ankle, able to bear weight) Integumentary: positive: Dry, Warm Neurologic: positive: Fully Oriented, Alert, Normal Mood/Affect Medical Decision Making - Medical Decision Making 03/10/20 18:18 34 yo F, here for suture removal of R hand. No acute complaints. Also mentions twisting L ankle several day ago w/ some pain now. see exam Suture removal to R hand 7 sutures to medical R hand w/ no complication Ankle sprain XR neg JUSTUS, OTC pain control Ortho f/u as needed Discharge - Discharge Information Problems reviewed: Yes Clinical Impression/Diagnosis: Visit for suture removal Left ankle sprain Qualifiers: Encounter type: initial encounter Involved ligament of ankle: unspecified ligament Qualified Code(s): S93.402A - Sprain of unspecified ligament of left ankle, initial encounter Condition: Good Disposition: HOME - Follow up/Referral Referrals: Marcus Phipps [Primary Care Provider] - Cong Gomez MD [Staff Physician] - - Patient Discharge Instructions Patient Printed Discharge Instructions: DI for Suture Removal, DI for Ankle Sprain Additional Instructions: JUSTUS wrap and take motrin as needed for pain If pain persists after 2 weeks, follow w/ Dr Gomez of orthopedics - Post Discharge Activity
[2020-03-10 19:04] VITALS: BP 139/95; PULSE 69
== END 2020-03-10 19:06 | disposition home or self-care (01) ==
LOC: JERFT 17:51
DX: Z48.02 Encounter for removal of sutures (principal); S93.402A Sprain of unspecified ligament of left ankle, initial encounter
CPT/HCPCS: 73610-TC-LT-FY; 99283-25

== ENCOUNTER 2021-04-15 04:43 | Day surgery (SDC) | payer OTHER ==
[2021-04-11 17:29] VITALS: BMI 20.7
[2021-04-15] MEDS ORDERED: ONDANSETRON 4 MG/2 ML VIAL IVPUSH PRN (09:56)
[2021-04-15] MEDS ORDERED: ACETAMINOPHEN 500 MG TABLET (FP) PO PRN (09:56)
[2021-04-15] MEDS ORDERED: MIDAZOLAM HCL 2 MG/2 ML SINGLE DOSE VIAL ONE (10:03)
[2021-04-15] MEDS ORDERED: KETAMINE HCL 200 MG/20 ML VIAL ONE (10:04)
[2021-04-15] MEDS ORDERED: PROPOFOL 20 ML ONE ×2 (10:04)
[2021-04-15] MEDS ORDERED: ceFAZolin SODIUM 1 GM VIAL ONE (10:26)
[2021-04-15] MEDS ORDERED: ceFAZolin SODIUM 1 GM VIAL IVPB ONE (10:29)
[2021-04-15] MEDS ORDERED: LIDOCAINE HCL/PF 2% SDV 5ML VIAL ONE (10:36)
[2021-04-15] MEDS ORDERED: ACETAMINOPHEN INJECTION 100 ML IVPB ONE (11:52)
[2021-04-15] MEDS: HYDROmorphone HCl 2 MG/ML VIAL ONE ×2 (12:05→12:15)
[2021-04-15] MEDS ORDERED: IBUPROFEN 400 MG TABLET (FP) PO PRN (12:09)
[2021-04-15] MEDS ORDERED: HYDROmorphone HCl 2 MG/ML VIAL IVPUSH ONE (12:29)
[2021-04-15 13:29] VITALS: TEMP 97
[2021-04-15] MEDS ORDERED: ONDANSETRON 4 MG/2 ML VIAL ONE (14:12)
[2021-04-15] MEDS ORDERED: ONDANSETRON 4 MG/2 ML VIAL IVPUSH ONE (14:15)
[2021-04-15 15:13] VITALS: BP 148/77; PULSE 68
== END 2021-04-15 15:05 | disposition home or self-care (01) ==
LOC: JASU-SURG 04:43
PROVIDERS: ATTEND Obstetrics & Gynecology
PROC: 0U9L0ZZ Drainage of Vestibular Gland, Open Approach (ICD-10-PCS; principal; 2021-04-15 10:00)
DX: N75.0 Cyst of Bartholin's gland (principal)
CPT/HCPCS: 88304-TC; 94760; J0131

== ENCOUNTER 2021-11-15 15:47 | Emergency (ER) | payer OTHER ==
[2021-11-15 15:56] VITALS: BP 136/85; PULSE 90; TEMP 97.5; BMI 20.7
[2021-11-15] MEDS ORDERED: IBUPROFEN 400 MG TABLET (FP) PO ONE ×2 (16:14→16:20)
== END 2021-11-15 17:08 | disposition home or self-care (01) ==
LOC: JERFT 15:47
PROC: 0U9MXZZ Drainage of Vulva, External Approach (ICD-10-PCS; principal; 2021-11-15)
DX: N75.1 Abscess of Bartholin's gland (principal)
CPT/HCPCS: 99283-25

== ENCOUNTER 2022-04-28 14:26 | Emergency (ER) | payer OTHER ==
[2022-04-28 14:54] VITALS: RESP 20; TEMP 98.3; BMI 22.1
[2022-04-28] MEDS ORDERED: METOCLOPRAMIDE HCL INJECTION 10 MG/2 ML VIAL IVPB ONE (15:25)
[2022-04-28] MEDS ORDERED: ACETAMINOPHEN 1000 MG/100 ML BAG IVPB ONE (15:25)
[2022-04-28] MEDS ORDERED: SODIUM CHLORIDE 1,000 ML IV STA (15:25)
[2022-04-28] MEDS ORDERED: morphine CARPU-JECT 4 MG/1 ML DISP.SYRIN IVPUSH ONE (15:41)
[2022-04-28] MEDS ORDERED: ACETAMINOPHEN INJECTION 100 ML IVPB ONE (15:42)
[2022-04-28] MEDS ORDERED: morphine SULFATE 4 MG/ML VIAL ONE (15:42)
[2022-04-28] MEDS ORDERED: LACTATED RINGERS SOLUTION 1000 ML INFUS.BAG IV ONE (15:42)
[2022-04-28] MEDS ORDERED: METOCLOPRAMIDE HCL INJECTION 10 MG/2 ML VIAL ONE (15:42)
[2022-04-28] MEDS ORDERED: SODIUM CHLORIDE 500 ML IV STA (16:22)
[2022-04-28 16:44] LABS: BASO % 0.5 % (0-2.0); EOS % 0.7 % (0-4.5); HEMATOCRIT 38.1 % (32.4-45.2); HEMOGLOBIN 12.1 GM/dL (10.7-15.3); LYMPH % 11.8 % (8-40); MCH 26.2 pg (25.7-33.7); MCHC 31.6 g/dl (32.0-36.0); MEAN CELL VOLUME 82.9 fl (80-96); MEAN PLT VOLUME 8.8 fl (7.5-11.1); MONO % 9.9 % (3.8-10.2); NEUT % 77.1 % (42.8-82.8); PLATELET COUNT 363 10^3/uL (134-434); RDW 16.2 % (11.6-15.6); WHITE BLOOD COUNT 14.9 K/mm3 (4.0-10.0)
[2022-04-28 17:01] LABS: EPI CELLS >36 /uL (0-25.1); HYALINE CASTS 11 /uL (0-3.1); URINE APPEARANCE TURBID; URINE BACTERIA >9,000 /uL (0-1359); URINE BILIRUBIN NEGATIVE (NEGATIVE); URINE COLOR YELLOW; URINE GLUCOSE (UA) NEGATIVE (NEGATIVE); URINE KETONE NEGATIVE (NEGATIVE); URINE LEUK ESTERASE 3+ (NEGATIVE); URINE NITRITE POSITIVE (NEGATIVE); URINE PROTEIN 2+ (NEGATIVE); URINE RBC 51 /uL (0-23.9); URINE UROBILINOGEN 0.2 mg/dL (0.2-1.0); URINE WBC 1528 /uL (0-25.8)
[2022-04-28 17:10] LABS: HCG,QUALITATIVE URINE Negative
[2022-04-28 17:13] LABS: CALCIUM 8.8 mg/dL (8.5-10.1)
[2022-04-28 17:14] LABS: BLOOD UREA NITROGEN 17.4 mg/dL (7-18)
[2022-04-28] MEDS ORDERED: CEFTRIAXONE 1,000 MG in DEXTROSE 5%-WATER - 50 ML IVPB ONE (17:15)
[2022-04-28 17:16] LABS: CREATININE 0.7 mg/dL (0.55-1.3)
[2022-04-28 17:18] LABS: BILIRUBIN,TOTAL 0.9 mg/dL (0.2-1); TOT PROT 7.5 g/dl (6.4-8.2)
[2022-04-28 18:16] LABS: YEAST NONE SEEN (NEGATIVE)
[2022-04-28] MEDS ORDERED: CEFTRIAXONE 1 GM/50 ML BAG ONE (18:32)
[2022-04-28 18:41] VITALS: BP 145/87; PULSE 66
== END 2022-04-28 18:53 | disposition home or self-care (01) ==
LOC: JER 14:26
DX: R10.9 Unspecified abdominal pain (principal)
CPT/HCPCS: 36415; 74176-TC; 76830-TC; 80053; 81003; 84703; 85025; 87086; 87186; 99284-25

== ENCOUNTER 2022-12-12 14:05 | Emergency (ER) | payer OTHER ==
[2022-12-12 14:16] VITALS: BP 150/75; PULSE 73; RESP 18; TEMP 98.6; BMI 25.0
[2022-12-12] MEDS ORDERED: SODIUM CHLORIDE 1,000 ML IV STA (14:30)
[2022-12-12] MEDS ORDERED: ACETAMINOPHEN 1000 MG/100 ML BAG IVPB ONE (14:30)
[2022-12-12 15:24] LABS: BASO % 0.9 % (0-2.0); EOS % 5.9 % (0-4.5); EPI CELLS 23 /uL (0-25.1); HEMATOCRIT 35.7 % (32.4-45.2); HEMOGLOBIN 12.1 GM/dL (10.7-15.3); HYALINE CASTS 2 /uL (0-3.1); MCHC 33.8 g/dl (32.0-36.0); MEAN CELL VOLUME 85.9 fl (80-96); MEAN PLT VOLUME 8.5 fl (7.5-11.1); NEUT % 66.2 % (42.8-82.8); PH,URINE 7.5 (5.0-8.0); PLATELET COUNT 342 10^3/uL (134-434); RBC 4.15 M/mm3 (3.60-5.2); RDW 14.4 % (11.6-15.6); URINE APPEARANCE CLOUDY; URINE BACTERIA 873 /uL (0-1359); URINE BILIRUBIN NEGATIVE (NEGATIVE); URINE COLOR RED; URINE GLUCOSE (UA) NEGATIVE (NEGATIVE); URINE KETONE NEGATIVE (NEGATIVE); URINE LEUK ESTERASE 1+ (NEGATIVE); URINE NITRITE NEGATIVE (NEGATIVE); URINE PROTEIN 1+ (NEGATIVE); URINE RBC 3674 /uL (0-23.9); URINE UROBILINOGEN 0.2 mg/dL (0.2-1.0); URINE WBC 123 /uL (0-25.8); WHITE BLOOD COUNT 8.2 K/mm3 (4.0-10.0)
[2022-12-12 15:29] LABS: INR 1.04 (0.83-1.09); PROTHROMBIN TIME (PATIENT) 12.1 SEC (9.7-13.0)
[2022-12-12 15:31] LABS: ACTIVATED PTT 32.6 SECONDS (25.2-36.5)
[2022-12-12 15:34] LABS: HCG,QUALITATIVE URINE Negative
[2022-12-12] MEDS ORDERED: KETOROLAC TROMETHAMINE 30 MG/1 ML VIAL IVPUSH ONE (15:43)
[2022-12-12] MEDS ORDERED: KETOROLAC TROMETHAMINE 30 MG/1 ML VIAL ONE (15:44)
[2022-12-12 15:55] LABS: CALCIUM 8.5 mg/dL (8.5-10.1)
[2022-12-12 15:56] LABS: ALBUMIN 3.9 g/dl (3.4-5.0); BLOOD UREA NITROGEN 14.4 mg/dL (7-18)
[2022-12-12 15:59] LABS: CREATININE 0.8 mg/dL (0.55-1.3)
[2022-12-12] MEDS ORDERED: IBUPROFEN 600 MG TABLET (FP) PO ONE (15:59)
[2022-12-12 16:00] LABS: BILIRUBIN,TOTAL 0.6 mg/dL (0.2-1); TOT PROT 7.6 g/dl (6.4-8.2)
== END 2022-12-12 16:13 | disposition home or self-care (01) ==
LOC: JER 14:05
PROC: 3E0333Z Introduction of Anti-inflammatory into Peripheral Vein, Percutaneous Approach (ICD-10-PCS; principal; 2022-12-12)
PROC: 3E0337Z Introduction of Electrolytic and Water Balance Substance into Peripheral Vein, Percutaneous Approach (ICD-10-PCS; 2022-12-12)
DX: N99.89 Other postprocedural complications and disorders of genitourinary system (principal)
CPT/HCPCS: 36415; 80053; 81003; 84703; 85025; 85610; 85730; 87086; 87186; 99284-25

== ENCOUNTER 2023-01-27 20:35 | Emergency (ER) | payer OTHER ==
[2023-01-27 20:47] VITALS: BP 166/81; PULSE 77; RESP 20; TEMP 98; BMI 25.0
== END 2023-01-27 22:40 | disposition home or self-care (01) ==
LOC: JER 20:35
DX: N90.7 Vulvar cyst (principal)
CPT/HCPCS: 99282-25

== ENCOUNTER 2023-06-25 12:19 | Emergency (ER) | payer OTHER ==
[2023-06-25 12:43] VITALS: BP 147/85; PULSE 81; RESP 16; TEMP 98.5; BMI 26.2
[2023-06-25] MEDS ORDERED: DEXAMETHASONE SOD PHOSPHATE 10 MG/1 ML VIAL IM ONE (13:47)
[2023-06-25] MEDS ORDERED: LIDOCAINE 4% PATCH TP ONE (13:47)
[2023-06-25] MEDS ORDERED: ACETAMINOPHEN 500 MG TABLET (FP) PO ONE (13:47)
[2023-06-25] MEDS ORDERED: ACETAMINOPHEN 500 MG TABLET (FP) ONE (13:50)
[2023-06-25] MEDS ORDERED: DEXAMETHASONE SOD PHOSPHATE 10 MG/1 ML VIAL ONE (13:50)
[2023-06-25 15:38] LABS: EPI CELLS >36 /uL (0-25.1); HCG,QUALITATIVE URINE Negative; HYALINE CASTS 3 /uL (0-3.1); PH,URINE 6.5 (5.0-8.0); URINE APPEARANCE CLOUDY; URINE BACTERIA 2654 /uL (0-1359); URINE BILIRUBIN NEGATIVE (NEGATIVE); URINE COLOR YELLOW; URINE GLUCOSE (UA) NEGATIVE (NEGATIVE); URINE KETONE NEGATIVE (NEGATIVE); URINE LEUK ESTERASE 2+ (NEGATIVE); URINE NITRITE NEGATIVE (NEGATIVE); URINE PROTEIN NEGATIVE (NEGATIVE); URINE RBC 18 /uL (0-23.9); URINE UROBILINOGEN 0.2 mg/dL (0.2-1.0); URINE WBC 250 /uL (0-25.8)
[2023-06-25] MEDS ORDERED: LIDOCAINE PATCH REMOVAL MC ONE (22:00)
== END 2023-06-25 17:31 | disposition home or self-care (01) ==
LOC: JERFT 12:19 → JER 12:19 → JERFT 17:31
PROC: 3E023GC Introduction of Other Therapeutic Substance into Muscle, Percutaneous Approach (ICD-10-PCS; principal; 2023-06-25)
DX: M54.16 Radiculopathy, lumbar region (principal); M79.661 Pain in right lower leg; R20.2 Paresthesia of skin
CPT/HCPCS: 72131-TC; 73562-TC-RT-FY; 81003; 84703; 87086; 87186; 99285-25; J1100

== ENCOUNTER 2023-09-16 18:34 | Emergency (ER) | payer OTHER ==
[2023-09-16 18:54] VITALS: BP 123/72; PULSE 63; RESP 18; TEMP 98.3; BMI 22.6
[2023-09-16] MEDS ORDERED: DEXAMETHASONE SOD PHOSPHATE 10 MG/1 ML VIAL IM ONE (20:27)
[2023-09-16] MEDS ORDERED: ALBUTEROL SO4 2.5/IPRATROPIUM 0.5 INH SOL 3 ML VIAL.NEB. NEB ONE (20:28)
[2023-09-16] MEDS ORDERED: DEXAMETHASONE SOD PHOSPHATE 10 MG/1 ML VIAL ONE (20:28)
[2023-09-16] MEDS: ALBUTEROL SO4 2.5/IPRATROPIUM 0.5 INH SOL 3 ML VIAL.NEB. NEB SCH ×3 (20:30→21:00)
== END 2023-09-16 21:57 | disposition home or self-care (01) ==
LOC: JER 18:34
PROC: 3E023GC Introduction of Other Therapeutic Substance into Muscle, Percutaneous Approach (ICD-10-PCS; principal; 2023-09-16)
PROC: 3E0F7GC Introduction of Other Therapeutic Substance into Respiratory Tract, Via Natural or Artificial Opening (ICD-10-PCS; 2023-09-16)
DX: R06.02 Shortness of breath (principal); R05.9 Cough, unspecified; R09.81 Nasal congestion; J45.901 Unspecified asthma with (acute) exacerbation; Z20.822 Contact with and (suspected) exposure to COVID-19
CPT/HCPCS: 0241U-QW; 93005; 93010; 99284-25; J1100

== ENCOUNTER 2023-10-18 17:51 | Emergency (ER) | payer OTHER ==
[2023-10-18 17:58] VITALS: BP 137/93; PULSE 93; RESP 20; TEMP 98.1; BMI 23.3
[2023-10-18] MEDS ORDERED: ACETAMINOPHEN 500 MG TABLET (FP) ONE (18:55)
[2023-10-18] MEDS ORDERED: IBUPROFEN 600 MG TABLET (FP) PO ONE (18:55)
[2023-10-18] MEDS: ACETAMINOPHEN 500 MG TABLET (FP) PO ONE (18:56)
[2023-10-18] MEDS: IBUPROFEN 600 MG TABLET (FP) PO ONE (18:56)
== END 2023-10-18 20:21 | disposition home or self-care (01) ==
LOC: JERFT 17:51
DX: M25.462 Effusion, left knee (principal); M25.562 Pain in left knee; Y93.41 Activity, dancing
CPT/HCPCS: 73562-TC-LT-FY; 99283-25